=== PATIENT | male | born 1950 | race Caucasian/White ===

== ENCOUNTER 2018-11-01 03:23 | Emergency (ER) | payer MEDICARE, BC ==
[2018-11-01] MEDS ORDERED: Ondansetron 4 MG/2 ML SDV IV ONE (03:52)
[2018-11-01] MEDS ORDERED: fentaNYL 100 MCG/2 ML SDV IVPUSH ONE ×2 (03:53→05:18)
--- NOTE | 2018-11-01 04:08 | EDM.PDOC ---
"ED HPI GENERAL MEDICAL PROBLEM - General Chief Complaint: Abdominal Pain Stated Complaint: NOT FEELING WELL, RIGHT SIDE ACHE [id number] Time Seen by Provider: 11/01/18 03:30 Source of Information: Reports: Patient, Family, RN History Limitations: Reports: No Limitations - History of Present Illness INITIAL COMMENTS - FREE TEXT/NARRATIVE: ED with c/o RLQ pain, onset approximately 9pm tonight, Nausea and vomiting, One diarrhea stool. Intermittent pain to low back. Hx chronic back pain. Chills prior to emesis. No prior episodes. Colonoscopy last fall reported to have been fine. No prior abdominal problems or surgery. Remote hx coronary bypass at age 44. Right Middle Abdomen Pain Score (Numeric/FACES): 6 - Related Data Allergies Allergy/AdvReac Type Severity Reaction Status Date / Time hydrocodone Allergy Indigestion Verified 11/01/18 03:35 Sulfa (Sulfonamide Allergy Hives Verified 11/01/18 03:35 Antibiotics) Home Meds: Home Meds Aspirin [Ecotrin] 1 tab PO DAILY 04/30/15 [History] Atenolol 1.5 tab PO DAILY 04/30/15 [History] Cholecalciferol (Vitamin D3) [Vitamin D3] 1 tab PO DAILY 04/30/15 [History] Fenofibrate,Micronized [Fenofibrate] 1 cap PO DAILY 04/30/15 [History] Fish Oil/[place]-3 Fatty Acids [Fish Oil 1,000 MG] 2 cap PO DAILY 04/30/15 [ History] Lutein/Minerals/Vit A,C & E [I-Deondre] 1 tab PO DAILY 04/30/15 [History] Nitroglycerin [Nitrostat] 1 tab SL ASDIRECTED PRN 04/30/15 [History] Omeprazole 1 cap PO DAILY PRN 04/30/15 [History] Ramipril [Altace] 1 cap PO DAILY 04/30/15 [History] Sertraline HCl 1 tab PO DAILY 04/30/15 [History] Simvastatin 0.5 tab PO BEDTIME 04/30/15 [History] amLODIPine [Norvasc] 1.5 tab PO DAILY 04/30/15 [History] Past Medical History HEENT History: Reports: Impaired Vision Other HEENT History: WEARS CORRECTIVE LENSES; CATARACT LEFT EYE Cardiovascular History: Reports: CAD, High Cholesterol, Hypertension Other Cardiovascular History: DYSLIPIDEMIA Respiratory History: Reports: None Gastrointestinal History: Reports: GERD Genitourinary History: Reports: Chronic Renal Insuffiency Other Genitourinary History: CHRONIC RENAL DISEASE STAGE III Musculoskeletal History: Reports: Arthritis Neurological History: Reports: None Psychiatric History: Reports: None Endocrine/Metabolic History: Reports: Other (See Below) Hematologic History: Reports: None Immunologic History: Reports: None Oncologic (Cancer) History: Reports: None Dermatologic History: Reports: None - Past Surgical History Head Surgeries/Procedures: Reports: None HEENT Surgical History: Reports: Cataract Surgery Cardiovascular Surgical History: Reports: Coronary Artery Bypass, Coronary Artery Stent, Other (See Below) Respiratory Surgical History: Reports: None GI Surgical History: Reports: Colonoscopy Neurological Surgical History: Reports: None Musculoskeletal Surgical History: Reports: Arthroscopic Knee, Other (See Below) Dermatological Surgical History: Reports: None Social & Family History - Tobacco Use Smoking Status *Q: Never Smoker - Caffeine Use Caffeine Use: Reports: Coffee - Recreational Drug Use Recreational Drug Use: No ED ROS GENERAL - Review of Systems Review Of Systems: ROS reveals no pertinent complaints other than HPI. ED EXAM, GI/ABD - Physical Exam Exam: See Below Exam Limited By: No Limitations General Appearance: Alert, Mild Distress Eyes: Bilateral: EOMI Ears: Normal External Exam Nose: Normal Inspection Throat/Mouth: Normal Inspection Head: Atraumatic, Normocephalic Neck: Normal Inspection Respiratory/Chest: No Respiratory Distress, Lungs Clear, Normal Breath Sounds Cardiovascular: Normal Peripheral Pulses, Regular Rate, Rhythm GI/Abdominal Exam: Tender (RLQ), Abnormal Bowel Sounds (hypoactive). No: Guarding, Rigid, Rebound Back Exam: Normal Inspection. No: CVA Tenderness (L), CVA Tenderness (R) Extremities: Normal Inspection, Normal Range of Motion Neurological: Alert, Oriented, Normal Cognition Psychiatric: Normal Affect, Normal Mood Skin Exam: Warm, Dry, Intact, Pallor Course - Vital Signs Last Recorded V/S: Last Vital Signs Temp 98.3 F 11/01/18 05:28 Pulse 56 L 11/01/18 05:28 Resp 18 11/01/18 05:28 BP 151/76 H 11/01/18 05:28 Pulse Ox 99 11/01/18 05:28 - Orders/Labs/Meds Labs: Laboratory Tests 04/30/19 04/30/19 04/30/19 Range/Units 03:44 03:44 03:52 WBC 10.6 H (5.0-10.0) 10^3/uL RBC 5.00 (4.6-6.2) 10^6/uL Hgb 14.6 (14.0-18.0) g/dL Hct 42.4 (40.0-54.0) % MCV 84.8 (80-100) fL MCH 29.2 (27.0-34.0) pg MCHC 34.4 (33.0-35.0) g/dL Plt Count 191 (150-450) 10^3/uL Neut % (Auto) 83.1 H (42.2-75.2) % Lymph % (Auto) 7.2 L (20.5-50.1) % Ida % (Auto) 8.8 H (2-8) % Eos % (Auto) 0.5 L (1.0-3.0) % Baso % (Auto) 0.4 (0.0-1.0) % Sodium 139 (135-145) mmol/L Potassium 4.2 (3.6-5.0) mmol/L Chloride 106 (101-111) mmol/L Carbon Dioxide 23.0 (21.0-31.0) mmol/L Anion Gap 14.2 BUN 27 H (7-18) mg/dL Creatinine 1.7 H (0.6-1.3) mg/dL Est Cr Clr Drug Dosing 40.79 mL/min Estimated GFR (MDRD) 40 BUN/Creatinine Ratio 15.88 Glucose 156 H (74-105) mg/dL Lactic Acid 1.3 (0.5-2.2) mmol/L Calcium 10.1 (8.4-10.2) mg/dl Total Bilirubin 1.0 (0.2-1.0) mg/dL AST 25 (10-42) IU/L ALT 21 (10-60) IU/L Alkaline Phosphatase 24 L (42-121) IU/L Total Protein 6.9 (6.7-8.2) g/dl Albumin 4.4 (3.2-5.5) g/dl Globulin 2.5 Albumin/Globulin Ratio 1.76 Amylase 117 H (28-100) U/L Lipase 74 H (22-51) U/L Urine Color (YELLOW) Urine Appearance (CLEAR) Urine pH (5.0-9.0) Ur Specific Culver (1.005-1.030) Urine Protein (NEGATIVE) Urine Glucose (UA) (NEGATIVE) Urine Ketones (NEGATIVE) Urine Occult Blood (NEGATIVE) Urine Nitrite (NEGATIVE) Urine Bilirubin (NEGATIVE) Urine Urobilinogen (0.2-1.0) mg/dL Ur Leukocyte Esterase (NEGATIVE) Urine RBC /HPF Urine WBC (0-5/HPF) /HPF Ur Epithelial Cells /HPF Amorphous Sediment (0/HPF) /HPF Urine Bacteria (0-FEW/HPF) /HPF 11/01/18 Range/Units 04:10 WBC (5.0-10.0) 10^3/uL RBC (4.6-6.2) 10^6/uL Hgb (14.0-18.0) g/dL Hct (40.0-54.0) % MCV (80-100) fL MCH (27.0-34.0) pg MCHC (33.0-35.0) g/dL Plt Count (150-450) 10^3/uL Neut % (Auto) (42.2-75.2) % Lymph % (Auto) (20.5-50.1) % Ida % (Auto) (2-8) % Eos % (Auto) (1.0-3.0) % Baso % (Auto) (0.0-1.0) % Sodium (135-145) mmol/L Potassium (3.6-5.0) mmol/L Chloride (101-111) mmol/L Carbon Dioxide (21.0-31.0) mmol/L Anion Gap BUN (7-18) mg/dL Creatinine (0.6-1.3) mg/dL Est Cr Clr Drug Dosing mL/min Estimated GFR (MDRD) BUN/Creatinine Ratio Glucose (74-105) mg/dL Lactic Acid (0.5-2.2) mmol/L Calcium (8.4-10.2) mg/dl Total Bilirubin (0.2-1.0) mg/dL AST (10-42) IU/L ALT (10-60) IU/L Alkaline Phosphatase (42-121) IU/L Total Protein (6.7-8.2) g/dl Albumin (3.2-5.5) g/dl Globulin Albumin/Globulin Ratio Amylase (28-100) U/L Lipase (22-51) U/L Urine Color Yellow (YELLOW) Urine Appearance Clear (CLEAR) Urine pH 6.5 (5.0-9.0) Ur Specific Culver 1.020 (1.005-1.030) Urine Protein Negative (NEGATIVE) Urine Glucose (UA) Negative (NEGATIVE) Urine Ketones Negative (NEGATIVE) Urine Occult Blood Trace-intact H (NEGATIVE) Urine Nitrite Negative (NEGATIVE) Urine Bilirubin Negative (NEGATIVE) Urine Urobilinogen 1.0 (0.2-1.0) mg/dL Ur Leukocyte Esterase Negative (NEGATIVE) Urine RBC 0-5 /HPF Urine WBC 0-5 (0-5/HPF) /HPF Ur Epithelial Cells Occasional /HPF Amorphous Sediment Few (0/HPF) /HPF Urine Bacteria Few (0-FEW/HPF) /HPF Meds: Medications Discontinued Medications Generic Name Dose Route Start Last Admin Trade Name Freq PRN Reason Stop Dose Admin Fentanyl 50 mcg 11/01/18 03:53 11/01/18 04:02 Sublimaze IVPUSH 11/01/18 03:54 50 mcg ONETIME ONE Administration Fentanyl 50 mcg 11/01/18 05:18 11/01/18 05:25 Sublimaze IVPUSH 11/01/18 05:19 50 mcg ONETIME ONE Administration Sodium Chloride 1,000 mls @ 500 mls/hr 11/01/18 04:25 11/01/18 04:58 Normal Saline IV 11/01/18 06:24 500 mls/hr .BOLUS ONE Administration Iopamidol 75 ml 11/01/18 04:24 11/01/18 04:59 Isovue-300 (61%) IVPUSH 11/01/18 04:25 75 ml ONETIME ONE Administration Ondansetron HCl 4 mg 11/01/18 03:52 11/01/18 04:02 Zofran IV 11/01/18 03:53 4 mg ONETIME ONE Administration Tamsulosin HCl 0.4 mg 11/01/18 05:18 11/01/18 05:26 Flomax PO 11/01/18 05:19 0.4 mg ONETIME ONE Administration - Radiology Interpretation Free Text/Narrative:: [facility] Final Radiology Report Call: [phone] assistance Online chat: [email or web address] Name: JUAN BRAXTON Age: 68Years M Date: 11/01/2018 SSN: -- : [id number] Study: CT ABDOMEN/PELVIS W Requesting Physician: ADAM TAYLOR Images: [id number] Addl Studies: Provided Clinical History: Contrast: With Contrast Medium: ISO 300 Contrast Amount: 75 mL Contrast Method: L wrist 18g Page 1 of 2 EXAM: CT Abdomen and Pelvis With Contrast EXAM DATE/TIME: 11/01/2018 4:49 AM CLINICAL HISTORY: 68 years old, male; Abdominal pain; Localized; Right lower quadrant (rlq) TECHNIQUE: Imaging protocol: Axial computed tomography images of the abdomen and pelvis with intravenous contrast. Coronal and sagittal reformatted images were created and reviewed. Radiation optimization: All CT scans at this facility use at least one of these dose optimization techniques: automated exposure control; mA and/or kV adjustment per patient size (includes targeted exams where dose is matched to clinical indication); or iterative reconstruction. Contrast material: ISO 300; Contrast volume: 75 ml; Contrast route: L WRIST 18G; COMPARISON: No relevant prior studies available. FINDINGS: Mediastinum: Small hiatal hernia. ABDOMEN: Liver: Nonspecific subcentimeter hypodensity(s) within the liver. Gallbladder and bile ducts: Normal. No calcified stones. No ductal dilation. Pancreas: Normal. No ductal dilation. Spleen: Normal. No splenomegaly. Adrenals: Normal. No mass. JUAN BRAXTON | Final Radiology Report CONFIDENTIALITY STATEMENT This report is intended only for use by the referring physician, and only in accordance with law. If you received this in error, call [phone]. Page 2 of 2 Kidneys and ureters: 2 mm RIGHT distal ureterolith just proximal to the RIGHT UVJ causes mild to moderate RIGHT hydroureteronephrosis. Stomach and bowel: Normal. No obstruction. No mucosal thickening. Appendix: No evidence of appendicitis. PELVIS: Bladder: Unremarkable as visualized. Reproductive: Prostatic hypertrophy with the prostate measuring 5 cm. ABDOMEN and PELVIS: Intraperitoneal space: Normal. No free air. No significant fluid collection. Bones/joints: Degenerative changes throughout the visualized thoracic and lumbar spine. Soft tissues: Small bilateral fat containing inguinal hernias. Vasculature: Atherosclerotic calcification of the abdominal aorta and iliac arteries. No abdominal aortic aneurysm. Lymph nodes: Normal. No enlarged lymph nodes. IMPRESSION: 1. 2 mm RIGHT distal ureterolith just proximal to the RIGHT UVJ causes mild to moderate RIGHT hydroureteronephrosis. 2. Prostatic hypertrophy. Correlation with PSA levels. 3. Additional nonemergent CT findings above. Thank you for allow Departure - Departure Time of Disposition: 06:40 Disposition: Home, Self-Care 01 Condition: Good Clinical Impression: Kidney stone on right side, Prostatic hypertrophy, Renal insufficiency Nausea & vomiting Qualifiers: Vomiting type: bilious vomiting Qualified Code(s): R11.14 - Bilious vomiting - Discharge Information *PRESCRIPTION DRUG MONITORING PROGRAM REVIEWED*: No *COPY OF PRESCRIPTION DRUG MONITORING REPORT IN PATIENT MARYLU: Not Applicable Instructions: Kidney Stones, [id number] Forms: ED Department Discharge Additional Instructions: increase fluid intake flomax o.4mg one daily in evening x 7 days change positions slowly zofran 4mg one every 4 hours as needed for nausea percocet 5/325 one every 6 hours as needed for severe pain increase fruit and fiber in diet follow up with primary care this week to address enlarged prostate and symptoms"
[2018-11-01 04:10] LABS: ANION GAP 14.2
[2018-11-01] MEDS ORDERED: Iopamidol 612 MG/ML 75 ML Bottle IVPUSH ONE (04:24)
[2018-11-01] MEDS ORDERED: Sodium Chloride 0.9% 1,000 ML IV ONE (04:25)
[2018-11-01] MEDS ORDERED: Tamsulosin 0.4 MG Cap.ER PO ONE (05:18)
[2018-11-01 05:30] VITALS: BP 151/76
== END 2018-11-01 06:50 | disposition home or self-care (01) ==
LOC: DL.ED 03:23
DX: N13.2 Hydronephrosis with renal and ureteral calculous obstruction (principal); R11.14 Bilious vomiting; I12.9 Hypertensive chronic kidney disease with stage 1 through stage 4 chronic kidney disease, or unspecified chronic kidney disease; N18.3 Chronic kidney disease, stage 3 (moderate); Z88.6 Allergy status to analgesic agent; Z88.2 Allergy status to sulfonamides; Z79.82 Long term (current) use of aspirin; Z79.899 Other long term (current) drug therapy
CPT/HCPCS: 36415; 74177; 80053; 81001; 82150; 83605; 83690; 85025; 96361; 96374; 96375; 96376; 99284; A9270; J2405; J3010; J7030; Q9967

== ENCOUNTER 2018-12-20 14:41 | Emergency (ER) | payer MEDICARE, BC ==
[2018-12-20 15:01] VITALS: BP 165/81
--- NOTE | 2018-12-20 15:11 | EDM.PDOC ---
ED HPI GENERAL MEDICAL PROBLEM - General Chief Complaint: General Stated Complaint: PUFFY LEG AFTER ANGIOGRAM Time Seen by Provider: 12/20/18 15:00 Source of Information: Reports: Patient History Limitations: Reports: No Limitations - History of Present Illness INITIAL COMMENTS - FREE TEXT/NARRATIVE: This 68 yo male patient reports to the ED due to swelling in his right groin. The patient reports he had a cardiac stent placed at [facility] in [place] yesterday. The patient reports Dr. Blancas placed the stent. The patient noticed increased swelling and bruising that started just prior to his arrival in the ED. The patient denies any pain or loss of sensation since the symptoms started. The patient reports that he did not contact Dr. Blancas with his new symptoms. Onset: Today Duration: Minutes: Location: Reports: Lower Extremity, Right Quality: Reports: Other Severity: Moderate Improves with: Reports: None Worsens with: Reports: None Associated Symptoms: Reports: Other - Related Data Allergies Allergy/AdvReac Type Severity Reaction Status Date / Time hydrocodone Allergy Indigestion Verified 12/20/18 14:51 Sulfa (Sulfonamide Allergy Hives Verified 12/20/18 14:51 Antibiotics) Home Meds: Home Meds Cholecalciferol (Vitamin D3) [Vitamin D3] 1 tab PO DAILY 04/30/15 [History] Fenofibrate,Micronized [Fenofibrate] 1 cap PO DAILY 04/30/15 [History] Fish Oil/[place]-3 Fatty Acids [Fish Oil 1,000 MG] 2 cap PO DAILY 04/30/15 [ History] Nitroglycerin [Nitrostat] 1 tab SL ASDIRECTED PRN 04/30/15 [History] Omeprazole 1 cap PO DAILY PRN 04/30/15 [History] Ramipril [Altace] 1 cap PO DAILY 04/30/15 [History] amLODIPine [Norvasc] 1.5 tab PO DAILY 04/30/15 [History] Aspirin 81 mg PO DAILY 12/20/18 [History] Clopidogrel [Plavix] 1 tab PO DAILY 12/20/18 [History] Lutein/Minerals/Vit A,C & E [Ocuvite] 1 tab PO DAILY 12/20/18 [History] Metoprolol Tartrate 25 mg PO BID 12/20/18 [History] Rosuvastatin [Crestor] 20 mg PO BEDTIME 12/20/18 [History] Past Medical History HEENT History: Reports: Impaired Vision Other HEENT History: WEARS CORRECTIVE LENSES; CATARACT LEFT EYE Cardiovascular History: Reports: CAD, High Cholesterol, Hypertension Other Cardiovascular History: DYSLIPIDEMIA Respiratory History: Reports: None Gastrointestinal History: Reports: GERD Genitourinary History: Reports: Chronic Renal Insuffiency Other Genitourinary History: CHRONIC RENAL DISEASE STAGE III Musculoskeletal History: Reports: Arthritis Neurological History: Reports: None Psychiatric History: Reports: None Endocrine/Metabolic History: Reports: Other (See Below) Hematologic History: Reports: None Immunologic History: Reports: None Oncologic (Cancer) History: Reports: None Dermatologic History: Reports: None - Past Surgical History Head Surgeries/Procedures: Reports: None HEENT Surgical History: Reports: Cataract Surgery Cardiovascular Surgical History: Reports: Coronary Artery Bypass, Coronary Artery Stent, Other (See Below) Respiratory Surgical History: Reports: None GI Surgical History: Reports: Colonoscopy Neurological Surgical History: Reports: None Musculoskeletal Surgical History: Reports: Arthroscopic Knee, Other (See Below) Dermatological Surgical History: Reports: None Social & Family History - Caffeine Use Caffeine Use: Reports: Coffee ED ROS GENERAL - Review of Systems Review Of Systems: ROS reveals no pertinent complaints other than HPI. ED EXAM, GENERAL - Physical Exam Exam: See Below Exam Limited By: No Limitations General Appearance: Alert, WD/WN, Mild Distress Eye Exam: Bilateral Eye: EOMI, Normal Inspection, PERRL Ears: Normal External Exam, Normal Canal, Hearing Grossly Normal, Normal TMs Nose: Normal Inspection, Normal Mucosa, No Blood Throat/Mouth: Normal Inspection, Normal Lips, Normal Teeth, Normal Gums, Normal Oropharynx, Normal Voice, No Airway Compromise Head: Atraumatic, Normocephalic Neck: Normal Inspection, Supple, Non-Tender, Full Range of Motion Respiratory/Chest: No Respiratory Distress, Lungs Clear, Normal Breath Sounds, No Accessory Muscle Use, Chest Non-Tender Cardiovascular: Normal Peripheral Pulses, Regular Rate, Rhythm, No Edema, No Gallop, No JVD, No Murmur, No Rub GI/Abdominal: Normal Bowel Sounds, Soft, Non-Tender, No Organomegaly, No Distention, No Abnormal Bruit, No Mass (Male) Exam: Deferred Rectal (Males) Exam: Deferred Back Exam: Normal Inspection, Full Range of Motion, NT Extremities: Other (swelling with surrounding bruising noted in the right groin (catheter was placed in right groin yesterday)) Neurological: Alert, Oriented, CN II-XII Intact, Normal Cognition, Normal Gait, Normal Reflexes, No Motor/Sensory Deficits Psychiatric: Normal Affect, Normal Mood Lymphatic: No Adenopathy Course - Vital Signs Last Recorded V/S: Last Vital Signs Temp 36.9 C 12/20/18 14:44 Pulse 85 12/20/18 14:44 Resp 18 12/20/18 14:44 BP 165/81 H 12/20/18 14:44 Pulse Ox 100 12/20/18 14:44 - Orders/Labs/Meds Labs: Laboratory Tests 12/20/18 12/20/18 12/20/18 Range/Units 15:15 15:15 15:15 WBC 4.5 L (5.0-10.0) 10^3/uL RBC 4.81 (4.6-6.2) 10^6/uL Hgb 14.0 (14.0-18.0) g/dL Hct 40.9 (40.0-54.0) % MCV 85.0 (80-100) fL MCH 29.1 (27.0-34.0) pg MCHC 34.2 (33.0-35.0) g/dL Plt Count 181 (150-450) 10^3/uL Neut % (Auto) 58.8 (42.2-75.2) % Lymph % (Auto) 26.1 (20.5-50.1) % Payne % (Auto) 11.5 H (2-8) % Eos % (Auto) 2.9 (1.0-3.0) % Baso % (Auto) 0.7 (0.0-1.0) % PT 10.3 (9.0-12.0) SEC INR 1.0 (0.9-1.2) D-Dimer, Quantitative 811 H (0-400) ng/mL Sodium 136 (135-145) mmol/L Potassium 3.4 L (3.6-5.0) mmol/L Chloride 103 (101-111) mmol/L Carbon Dioxide 23.0 (21.0-31.0) mmol/L Anion Gap 13.4 BUN 18 (7-18) mg/dL Creatinine 1.3 (0.6-1.3) mg/dL Est Cr Clr Drug Dosing 53.35 mL/min Estimated GFR (MDRD) 55 BUN/Creatinine Ratio 13.84 Glucose 147 H (74-105) mg/dL Calcium 9.7 (8.4-10.2) mg/dl Total Bilirubin 0.8 (0.2-1.0) mg/dL AST 23 (10-42) IU/L ALT 16 (10-60) IU/L Alkaline Phosphatase 30 L (42-121) IU/L Total Protein 7.1 (6.7-8.2) g/dl Albumin 4.6 (3.2-5.5) g/dl Globulin 2.5 Albumin/Globulin Ratio 1.84 Departure - Departure Time of Disposition: 17:09 Disposition: Home, Self-Care 01 Condition: Fair Clinical Impression: Postprocedural hematoma of a circulatory system organ or structure following a cardiac catheterization - Discharge Information *PRESCRIPTION DRUG MONITORING PROGRAM REVIEWED*: Not Applicable *COPY OF PRESCRIPTION DRUG MONITORING REPORT IN PATIENT MARYLU: Not Applicable Instructions: Hematoma, [id number] Forms: ED Department Discharge Care Plan Goals: The patient was advised of the examination and lab results during the visit. The patient was encouraged to rest and avoid heavy lifting. If the patient has any additional symptoms or concerns, the patient should either return to the emergency department or visit her primary care facility.
[2018-12-20 15:52] LABS: ANION GAP 13.4
== END 2018-12-20 17:15 | disposition home or self-care (01) ==
LOC: DL.ED 14:41
DX: I97.630 Postprocedural hematoma of a circulatory system organ or structure following a cardiac catheterization (principal); I12.9 Hypertensive chronic kidney disease with stage 1 through stage 4 chronic kidney disease, or unspecified chronic kidney disease; N18.3 Chronic kidney disease, stage 3 (moderate); M19.90 Unspecified osteoarthritis, unspecified site; K21.9 Gastro-esophageal reflux disease without esophagitis; Z79.82 Long term (current) use of aspirin; Z79.899 Other long term (current) drug therapy; Z95.1 Presence of aortocoronary bypass graft; Z88.2 Allergy status to sulfonamides; Z88.8 Allergy status to other drugs, medicaments and biological substances
CPT/HCPCS: 36415; 80053; 85025; 85379; 85610; 99283

== ENCOUNTER 2022-11-10 19:03 | Emergency (ER) | payer MEDICARE, BC ==
[2022-11-10] MEDS ORDERED: Ondansetron 4 MG/2 ML SDV IVPUSH ONE (19:25)
[2022-11-10] MEDS ORDERED: HYDROmorphone 0.5 MG/0.5 ML Syringe IVPUSH ONE (19:25)
[2022-11-10] MEDS ORDERED: Ketorolac 30 MG/ML SDV IVPUSH ONE (19:26)
[2022-11-10 20:09] LABS: ANION GAP 12.8 mEq/L (7-13); CALCIUM 9.3 mg/dL (8.5-10.1); CREATININE 1.5 mg/dL (0.70-1.30); EST CRCL DRUG DOSING (CG) 43.7 mL/min; POTASSIUM,K 3.8 mmol/L (3.5-5.1)
[2022-11-10] MEDS ORDERED: Take Home: Acetaminophen/HYDROcodone 325-5 MG, 5 Tab Pack PO ONE (20:09)
[2022-11-10] MEDS ORDERED: Take Home: Ondansetron 4 MG Tab.DIS, 5 Tab Pack PO ONE (20:10)
[2022-11-10 20:43] LABS: BASOPHILS PERCENT AUTO 0.5 % (0.0-1.0); EOSINOPHILS PERCENT AUTO 0.9 % (1.0-3.0); HEMATOCRIT 40.4 % (40.0-54.0); HEMOGLOBIN 14.1 g/dL (14.0-18.0); MEAN CORPUSCULAR HEMOGLOBIN 28.6 pg (27.0-34.0); MEAN CORPUSCULAR HGB CONC 34.9 g/dL (33.0-35.0); MEAN CORPUSCULAR VOLUME 81.9 fL (80-100); MONOCYTES PERCENT AUTO 10.4 % (2-8); NEUTROPHILS PERCENT AUTO 72.2 % (42.2-75.2); PLATELET COUNT,PLT 188 10^3/uL (150-450); RED BLOOD CELL COUNT 4.93 10^6/uL (4.6-6.2); WHITE BLOOD CELL COUNT,WBC 9.2 10^3/uL (5.0-10.0)
== END 2022-11-10 20:55 | disposition home or self-care (01) ==
LOC: DL.ED 19:03 → MERGE 19:03 → DL.ED 20:55
DX: R10.9 Unspecified abdominal pain (principal); I25.10 Atherosclerotic heart disease of native coronary artery without angina pectoris; E78.00 Pure hypercholesterolemia, unspecified; I12.9 Hypertensive chronic kidney disease with stage 1 through stage 4 chronic kidney disease, or unspecified chronic kidney disease; N18.30 Chronic kidney disease, stage 3 unspecified; Z88.5 Allergy status to narcotic agent; Z88.2 Allergy status to sulfonamides; Z86.16 Personal history of COVID-19; Z79.82 Long term (current) use of aspirin
CPT/HCPCS: 36415; 80048; 85025; 96374; 96375; 99284; A9270; J1170; J1885; J2405; Q0162

== ENCOUNTER 2023-02-11 16:29 | Emergency (ER) | payer MEDICARE, BC ==
[2023-02-11] MEDS ORDERED: Lidocaine 2% with EPINEPHrine 1:200,000 20 ML SDV INJECT ONE (19:22)
[2023-02-11] MEDS ORDERED: Bacitracin Oint 1 GM U/D Packet TOP ONE (19:23)
[2023-02-11] MEDS ORDERED: Diphtheria,Pertussis(Acell),Tetanus Vaccine 0.5 ML Syringe IM ONE (20:12)
== END 2023-02-11 20:15 | disposition home or self-care (01) ==
LOC: DL.ED 16:29
DX: S61.012A Laceration without foreign body of left thumb without damage to nail, initial encounter (principal); I25.10 Atherosclerotic heart disease of native coronary artery without angina pectoris; E78.00 Pure hypercholesterolemia, unspecified; K21.9 Gastro-esophageal reflux disease without esophagitis; I12.9 Hypertensive chronic kidney disease with stage 1 through stage 4 chronic kidney disease, or unspecified chronic kidney disease; N18.30 Chronic kidney disease, stage 3 unspecified; Z23 Encounter for immunization; Z86.16 Personal history of COVID-19; Z88.5 Allergy status to narcotic agent; Z88.2 Allergy status to sulfonamides; Z79.899 Other long term (current) drug therapy; Z79.82 Long term (current) use of aspirin; W27.0XXA Contact with workbench tool, initial encounter
CPT/HCPCS: 12001; 73140; 90471; 90715; 99283; A9270; J3490

== ENCOUNTER 2025-02-20 14:20 | Emergency (ER) | payer MEDICARE, BC | END 2025-02-20 15:23 | disposition home or self-care (01) | LOC: DL.ED 14:20 | DX: K59.00 Constipation, unspecified (principal); I25.10 Atherosclerotic heart disease of native coronary artery without angina pectoris; E78.00 Pure hypercholesterolemia, unspecified; I10 Essential (primary) hypertension; Z95.5 Presence of coronary angioplasty implant and graft; K21.9 Gastro-esophageal reflux disease without esophagitis; Z95.1 Presence of aortocoronary bypass graft; Z88.2 Allergy status to sulfonamides; Z88.5 Allergy status to narcotic agent; Z79.899 Other long term (current) drug therapy; Z79.82 Long term (current) use of aspirin; Z79.02 Long term (current) use of antithrombotics/antiplatelets | CPT/HCPCS: 99283 ==